=== PATIENT | male | born 1960 | race Caucasian/White ===

== ENCOUNTER 2019-01-27 12:35 | Outpatient (CLI) | payer OTHER ==
[~2019-01-27] VITALS: Ht 185.4 cm; Wt 122.5 kg
[2019-01-27 13:06] LABS: TOTAL HEMOGLOBIN 14.8 G/dl (14.0-18.0)
[2019-01-27] MEDS ORDERED: albuterol 2.5 MG/3 ML nebule NEB ONE (13:25)
== END 2019-01-27 23:59 | disposition home or self-care (01) ==
LOC: RT 12:35
PROVIDERS: ATTEND Internal Medicine Cardiovascular Disease
DX: I48.0 Paroxysmal atrial fibrillation (principal); R06.09 Other forms of dyspnea; R94.2 Abnormal results of pulmonary function studies; K21.9 Gastro-esophageal reflux disease without esophagitis; Z79.899 Other long term (current) drug therapy; Z79.82 Long term (current) use of aspirin
CPT/HCPCS: 85018; 94060; 94727; 94729; 94760

== ENCOUNTER 2019-08-27 09:17 | Emergency (ER) | payer BC, OTHER ==
[~2019-08-27] VITALS: Ht 185.4 cm; Wt 125.0 kg
[2019-08-27] MEDS ORDERED: rabies immune globulin/PF 150 unit/ml inj IMVAC STA (11:21)
[2019-08-27] MEDS ORDERED: rabies vaccine (PCEC)/PF 2.5 unit kit IMVAC ONE (11:25)
[2019-08-27 12:36] VITALS: BP 141/90
== END 2019-08-27 12:37 | disposition home or self-care (01) ==
LOC: ER 09:18
DX: S51.852A Open bite of left forearm, initial encounter (principal); R94.31 Abnormal electrocardiogram [ECG] [EKG]; W55.81XA Bitten by other mammals, initial encounter; Y93.89 Activity, other specified; Y92.89 Other specified places as the place of occurrence of the external cause; Y99.9 Unspecified external cause status
CPT/HCPCS: 90375; 90471; 90675; 93005; 96372; 99283

== ENCOUNTER 2019-08-30 08:40 | Emergency (ER) | payer BC, OTHER ==
[~2019-08-30] VITALS: Ht 185.4 cm; Wt 122.7 kg
[2019-08-30 08:45] VITALS: BP 148/102
[2019-08-30] MEDS ORDERED: rabies vaccine (PCEC)/PF 2.5 unit kit IM ONE (08:50)
== END 2019-08-30 09:01 | disposition home or self-care (01) ==
LOC: ER 08:41
DX: Z23 Encounter for immunization (principal)
CPT/HCPCS: 90471; 90675; 99283

== ENCOUNTER 2019-09-03 08:29 | Emergency (ER) | payer BC ==
[~2019-09-03] VITALS: Ht 185.4 cm; Wt 125.1 kg
[2019-09-03 08:32] VITALS: BP 129/79
[2019-09-03] MEDS ORDERED: rabies vaccine (PCEC)/PF 2.5 unit kit IMVAC ONE (09:10)
== END 2019-09-03 09:46 | disposition home or self-care (01) ==
LOC: ER 08:29
DX: S51.852D Open bite of left forearm, subsequent encounter (principal); Z23 Encounter for immunization; W55.81XD Bitten by other mammals, subsequent encounter
CPT/HCPCS: 90471; 90675; 99283

== ENCOUNTER 2019-09-10 09:05 | Emergency (ER) | payer BC ==
[~2019-09-10] VITALS: Ht 185.4 cm; Wt 122.7 kg
[2019-09-10 09:22] VITALS: BP 126/75
[2019-09-10] MEDS ORDERED: rabies vaccine (PCEC)/PF 2.5 unit kit IMVAC ONE (10:50)
== END 2019-09-10 11:50 | disposition home or self-care (01) ==
LOC: ER 09:05
DX: Z23 Encounter for immunization (principal)
CPT/HCPCS: 90471; 90675; 99283